=== PATIENT | male | born 1995 | race Asian ===

== ENCOUNTER 2022-11-26 14:08 | Emergency (ER) | payer OTHER, SELFPAY ==
[2022-11-26] MEDS ORDERED: Ibuprofen 200 MG TAB ONE (14:56)
== END 2022-11-26 16:24 | disposition home or self-care (01) ==
LOC: CSHERS 14:08 → EDBD 14:08 → CSHERS 16:24
DX: S63.502A Unspecified sprain of left wrist, initial encounter (principal); M79.642 Pain in left hand; M79.662 Pain in left lower leg; V43.52XA Car driver injured in collision with other type car in traffic accident, initial encounter; W22.11XA Striking against or struck by driver side automobile airbag, initial encounter